=== PATIENT | male | born 1960 | race Caucasian/White ===

== ENCOUNTER 2017-02-10 13:42 | Day surgery (SDC) | payer BC ==
[~2017-02-10] VITALS: Ht 177.8 cm; Wt 72.7 kg
[2017-02-10 16:09] VITALS: Ht 177.8 cm; Wt 72.7 kg
[2017-02-10 16:14] VITALS: BP 141/86; PULSE 71; RESP 20
[2017-02-10] MEDS ORDERED: NO HOME MEDS (16:17)
[2017-02-10] MEDS ORDERED: LIDOCAINE 2% (SDV) 5 ML INJ ONE (16:45)
[2017-02-10] MEDS ORDERED: PROPOFOL 40 ML ONE (16:45)
[2017-02-10 17:41] VITALS: BP 132/84; PULSE 73; RESP 17
--- NOTE | 2017-02-10 21:22 | GILP ---
DATE OF PROCEDURE: 02/10/2017 PROCEDURE: Colonoscopy to cecum. SURGEON: Candace Crowe MD. PREMEDICATION: Monitored anesthesia care by anesthesiologist. INSTRUMENT USED: Olympus panendoscope. PREPARATION: Adequate. TECHNIQUE: After informed consent, with the patient/relatives understanding the procedure, its indic ations potential risks and complications, including but not limited to: allergic reaction, bleeding, perforation, infection, missed lesions and after all pertinent questions were answered to the patie nt's satisfaction, the patient/relatives signed the witnessed informed consent. Following this, premedication was administered slowly IV push by under careful cardiovascular and re spiratory monitoring with pulse oximetry, automatic blood pressure and security monitor. Once the sedativ e effect was achieved, the patient was placed in the left lateral decubitus position, digital rectal examination was performed. The colonoscope was then introduced and advanced under visual control th roughout all segments of the colon including: the rectum, sigmoid, descending colon, splenic flexure , transverse colon, hepatic flexure, ascending colon and finally reaching the cecum which was clearl y identified by transillumination, finger indentation and the ileocecal valve. Careful examination o f the mucosa of the lower gastrointestinal tract both on insertion as well as withdrawal of the inst rument disclosed the following findings: Rectal Examination: No evidence of perirectal disease, no masses. Colonic Mucosa: The mucosa of all segments of the colon appears within normal limits. There is no e vidence of inflammatory changes, diverticular formation, polyps or other neoplasms, vascular malform ation, or any other abnormality. The instrument was then withdrawn. No additional abnormalities are noted with exception of moderate sized internal hemorrhoids. The patient tolerated the procedure well and was transferred out of [facility] awake and in good condition to continue recovery under observation. FINDINGS Colonic Mucosa: The colonic mucosa is remarkable for 1 single diverticulum noted in the proximal as cending colon, adjacent to the ileocecal valve. The mucosa is otherwise unremarkable. IMPRESSION: 1. A single diverticulum in the proximal ascending colon. 2. Otherwise, normal colonic mucosa. 3. Moderate size internal hemorrhoids. PLAN: The patient will be continued on present regimen. Annual Hemoccult stool testing is recommen ded. Colonoscopy in 10 years is recommended. Dictated By: CANDACE CROWE MS/PRABHJOT Conf#: [id number] DID#: [id number] CC: CANDACE CROWE; Fax Copy to:;*[facility]*
== END 2017-02-10 18:25 | disposition home or self-care (01) ==
LOC: GIL 13:42
PROVIDERS: ATTEND Internal Medicine Gastroenterology
DX: Z12.11 Encounter for screening for malignant neoplasm of colon (principal); K57.30 Diverticulosis of large intestine without perforation or abscess without bleeding; K64.8 Other hemorrhoids; Z88.0 Allergy status to penicillin
CPT/HCPCS: 45378; Z7610